=== PATIENT | female | born 1960 | race African-American/Black ===

== ENCOUNTER 2018-01-30 06:12 | Inpatient (IN) | payer OTHER ==
[2018-01-27 12:33] VITALS: BMI 31.8
[~2018-01-30 06:12] MED LIST: CEFAZOLIN 2 GM in DEXTROSE 5%-WATER - 50 ML IVPB ONE; CELECOXIB 200 MG CAPSULE PO ONE; GABAPENTIN 300 MG CAPSULE (FP) PO ONE; PANTOPRAZOLE 40 MG TABLET (FP) PO ONE; ROPIVICAINE 0.2%/MORPH PF/KETOROLAC - 51ML DISP.SYRINGE IA ONE; TRANEXAMIC ACID 1000 MG/10 ML VIAL IVPUSH ONE; oxyCODONE HCL 10 MG SUSTAINED ACTING TABLET PO ONE
[2018-01-30] MEDS ORDERED: GABAPENTIN 300 MG CAPSULE (FP) ONE (06:44)
[2018-01-30] MEDS ORDERED: oxyCODONE HCL 10 MG SUSTAINED ACTING TABLET ONE (06:44)
[2018-01-30] MEDS ORDERED: CELECOXIB 200 MG CAPSULE ONE (06:44)
[2018-01-30] MEDS ORDERED: PANTOPRAZOLE 40 MG TABLET (FP) ONE (06:44)
[2018-01-30] MEDS ORDERED: MIDAZOLAM HCL 2 MG/2 ML SINGLE DOSE VIAL ONE ×2 (06:45→07:15)
[2018-01-30] MEDS ORDERED: BUPIVACAINE LIPOSOME/PF (EXPAREL) 266 MG/20 ML VIAL ONE ×2 (06:45→07:12)
[2018-01-30] MEDS ORDERED: SODIUM CHLORIDE 0.9% P/F 10 ML VIAL IJ ONE (06:46)
[2018-01-30] MEDS ORDERED: BUPIVACAINE HCL/PF (5 MG/ML) 30 ML VIAL IJ ONE ×2 (06:46→07:13)
--- NOTE | 2018-01-30 07:09 | HP ---
Admitting History and Physical - Admission Chief Complaint: right knee osteoarthritis x years History of Present Illness: 57 year old female presents in regard to her right knee. Longstanding history of right knee osteoarthritis. Patient complains of pain, limited ROM, difficulty ambulating and difficulty with activities of daily living. Patient has failed conservative treatment measures including PO medication, activity modification, injections and exercise program. At this point, patient wishes to proceed with surgical intervention - right total knee arthroplasty (MAKOplasty). History Source: Patient Limitations to Obtaining History: No Limitations - Past Medical History Cardiovascular: Yes: HTN ENT: Yes: Allergic Rhinitis Endocrine: Yes: Hypothyroidism - Past Surgical History Additional Past Surgical History: See written history & physical. - Smoking History Smoking history: Never smoked Have you smoked in the past 12 months: No - Alcohol/Substance Use Hx Alcohol Use: Yes (OCCASIONAL) Home Medications - Allergies Allergies/Adverse Reactions: Allergies Allergy/AdvReac Type Severity Reaction Status Date / Time garlic Allergy Severe Difficulty Verified 01/27/18 12:12 Breathing peanut Allergy Severe Difficulty Verified 01/27/18 12:12 Breathing No Known Drug Allergies Allergy Verified 01/27/18 12:13 - Home Medications Home Medications: Ambulatory Orders Amlodipine Besylate 5 mg PO DAILY 01/27/18 Ipratropium [place] 30 ml NS Q6H PRN 01/27/18 Levothyroxine [Synthroid -] 88 mcg PO DAILY 01/27/18 Metoprolol Succinate 25 mg PO BID 01/27/18 Review of Systems - Review of Systems Musculoskeletal: reports: Crepitus (right knee), Decreased ROM (right knee), Joint Pain (right knee), Joint Swelling (right knee) Physical Examination Vital Signs: Vital Signs Temperature 98.2 F 01/30/18 06:32 Pulse Rate 52 L 01/30/18 06:32 Respiratory Rate 18 01/30/18 06:32 Blood Pressure 140/82 01/30/18 06:32 O2 Sat by Pulse Oximetry (%) Constitutional: Yes: Well Nourished Eyes: Yes: Conjunctiva Clear HENT: Yes: Atraumatic, Normocephalic Neck: Yes: Supple Cardiovascular: Yes: Regular Rate and Rhythm Respiratory: Yes: Regular Gastrointestinal: Yes: Soft ...Rectal Exam: Yes: Deferred Musculoskeletal: Yes: Joint Stiffness (right knee), Joint Swelling (right knee) Assessment/Plan 57 year old female presents in regard to her right knee. Longstanding history of right knee osteoarthritis. Patient complains of pain, limited ROM, difficulty ambulating and difficulty with activities of daily living. Patient has failed conservative treatment measures including PO medication, activity modification, injections and exercise program. At this point, patient wishes to proceed with surgical intervention - right total knee arthroplasty (MAKOplasty) . Pros, cons, risks, benefits and alternatives of a right total knee arthroplasty (MAKOplasty) were discussed with the patient at length. Patient confirms her understanding and consents to proceed with a right total knee arthroplasty (MAKOplasty).
[2018-01-30] MEDS ORDERED: LIDOCAINE HCL/PF 2% SDV 5ML VIAL ONE (07:14)
[2018-01-30] MEDS ORDERED: ceFAZolin SODIUM 1 GM VIAL ONE (07:14)
[2018-01-30] MEDS ORDERED: DEXAMETHASONE SOD PHOSPHATE 4 MG/1 ML VIAL ONE (07:14)
[2018-01-30] MEDS ORDERED: SUCCINYLCHOLINE CHLORIDE 200 MG/10 ML VIAL ONE (07:14)
[2018-01-30] MEDS ORDERED: ONDANSETRON 4 MG/2 ML VIAL ONE (07:14)
[2018-01-30] MEDS ORDERED: PROPOFOL 20 ML ONE (07:14)
[2018-01-30] MEDS ORDERED: TRANEXAMIC ACID 1000 MG/10 ML VIAL ONE (08:12)
[2018-01-30] MEDS ORDERED: ROPIVICAINE 0.2%/MORPH PF/KETOROLAC - 51ML DISP.SYRINGE IA ONE ×2 (09:08→10:50)
[2018-01-30] MEDS ORDERED: VANCOMYCIN 1,000 MG VIAL (RESTRICTED TO ID ONLY) IVPB ONE ×2 (09:09→10:50)
[2018-01-30] MEDS ORDERED: TRANEXAMIC ACID 1000 MG/10 ML VIAL IVPB ONE ×2 (09:10→10:50)
[2018-01-30] MEDS ORDERED: ACETAMINOPHEN 1000 MG/100 ML VIAL (NON FORMULARY) IVPB ONE ×2 (12:20→12:42)
[2018-01-30] MEDS ORDERED: traMADol HCL 50 MG TABLET PO ONE (12:25)
[2018-01-30] MEDS ORDERED: ACETAMINOPHEN INJECTION 100 ML IVPB ONE (12:27)
[2018-01-30] MEDS ORDERED: KETOROLAC TROMETHAMINE 30 MG/1 ML VIAL ONE (12:27)
[2018-01-30] MEDS ORDERED: traMADol HCL 50 MG TABLET ONE (12:27)
[2018-01-30] MEDS ORDERED: KETOROLAC TROMETHAMINE 30 MG/1 ML VIAL IVPUSH ONE (12:30)
[2018-01-30] MEDS ORDERED: IPRATROPIUM BROMIDE NS PRN (12:31)
[2018-01-30] MEDS ORDERED: ONDANSETRON 4 MG/2 ML VIAL IVPUSH PRN (12:33)
[2018-01-30] MEDS ORDERED: MAGNESIUM HYDROX 2400MG/30ML ORAL SUSPENSION 30 ML CUP PO PRN (12:33)
[2018-01-30] MEDS ORDERED: MAG HYDROX/AL HYDROX/SIMETH 30 ML UNIT-DOSE CUP PO PRN (12:33)
[2018-01-30] MEDS ORDERED: LACTATED RINGERS SOLUTION 1,000 ML IV SCH (12:45)
--- NOTE | 2018-01-30 12:53 | OP ---
Operative Note - Note: Operative Date: 01/30/18 Pre-Operative Diagnosis: right knee OA Operation: MAKOplasty right TKA Post-Operative Diagnosis: Same as Pre-op Surgeon: Adam Hanna Hematology Nurse Educator: Amarilis Emmanuel Anesthesia: Spinal Estimated Blood Loss (mls): 100
--- NOTE | 2018-01-30 13:29 | SPEC ---
DATE OF OPERATION: 01/30/2018 PREOPERATIVE DIAGNOSIS: Right knee osteoarthritis. POSTOPERATIVE DIAGNOSIS: Right knee osteoarthritis. PROCEDURE: Right total knee replacement with MAKOplasty robotic navigation. ATTENDING: Gloria Bateman MD AGRICULTURAL INSPECTOR: ROBERT Gil ANESTHESIA: Spinal plus sedation. ESTIMATED BLOOD LOSS: 100 mL COMPLICATIONS: None. DISPOSITION: The patient was transferred to the PACU in stable condition. IMPLANTS USED: Brynn Triathlon size 5 femoral component, size 4 tibial component, 35-mm patellar component, 13-mm total-stabilized polyethylene component. INDICATIONS: This is a 57-year-old female who presented to the office complaining of severe right knee pain. She was seen and examined by Dr. Bateman and diagnosed with severe right knee osteoarthritis. The patient was initially managed nonoperatively with injections, medications, and physical therapy but continued to have severe pain and ambulatory dysfunction. She was, therefore, indicated for total knee replacement. The risks, benefits, and alternatives to the procedure were explained to the patient in great detail, and she elected to proceed with the procedure. On the day of surgery, the patient was taken to the operating room and placed on the OR table. Spinal anesthesia was administered by the anesthesiologist. The patient was then positioned supine on the table and all bony prominences were padded. The knee was then prepped and draped in the usual sterile fashion and intravenous antibiotics were given for infection prophylaxis. A surgical time-out was then performed with the team, and the patients identity, procedure, side, availability of implants, and the administration of antibiotics was confirmed. With the knee flexed, a midline incision was made and carried down through the subcutaneous fat to the underlying retinaculum. A medial parapatellar arthrotomy was performed. This was followed by a subperiosteal dissection of the tissue off the proximal, medial tibia. A portion of fat pad was removed from under the patellar tendon, and a small portion of fat was excised off the distal supracondylar femur. Electrocautery and an Aquamantys bipolar sealing device were used to achieve hemostasis. The knee was then flexed further and the anterior horn of the lateral meniscus was released from the midline. Next, the anterior and posterior cruciate ligaments were transected. Grade 4 changes were noted diffusely throughout the knee. Femoral and tibial checkpoints were then placed in the appropriate location using a mallet. Two parallel bicortical self-drilling pins were placed in the tibial diaphysis after making stab incisions and bluntly dissecting down to bone. Two pins were then placed in the distal supracondylar femur. The MobileWeaver navigation arrays were then attached to both the femoral and tibial pins and the lower extremity was then registered to the robotic navigation device using various joint movements, as well as inputting several dozen reference points. The knee was then taken through a full range of motion with a corrective force applied. Alignment in varus/valgus as well as flexion/extension and soft tissue balance was measured in various positions. The navigation device showed a numerical and graphic representation of the soft tissue balance. The components were repositioned virtually using the software until optimal soft tissue balance was achieved on screen. Once this was accomplished, the final plan was saved and sent to the robot. Self-retaining retractors were then placed at the joint line for exposure and protection of the collateral ligaments. The robot was brought into the sterile field and registered with the navigation device. The robotic arm with attached oscillating saw blade was then used to perform femoral and tibial bone cuts as per the saved software plan. The femoral box cut was made using the appropriately sized manual cutting guide. The knee was then irrigated. Trial components were placed and the knee was taken through a full range of motion to assess soft tissue balance and alignment. The range of motion was found to be excellent and the soft tissue balance was optimal and according to plan. The knee was then put into extension and the patella everted. The synovium around the patella was circumscribed with electrocautery. A caliper was used to measure the patellar thickness and a saw was then used to resect the patella at the chondro-osseous junction. The cut surface was then sized and drilled for the appropriate patellar button, with care taken to medialize it. A trial patella was then placed and the knee was again taken through a full range of motion. The knee was found to have both good balance and good patellar tracking. All of the components were removed except the tibial base plate. The appropriate instrumentation was used to drill and punch the proximal tibia for the keel of the final component. All bony surfaces were then cleaned with pulsatile lavage and dried. Bone cement was then prepared on the back table, and final components were cemented in place in the usual fashion. Extruded cement was removed. The polyethylene trial was placed, the knee was put into extension, and axial pressure was applied for compression while the cement hardened. The patellar button was similarly cemented into place. Once the cement had hardened, the knee was taken through a full range of motion to assess stability, balance, and patellar tracking. This was found to be optimal and the trial polyethylene was exchanged for the appropriately sized real implant. The wound was then thoroughly irrigated with normal saline. A 3-minute dilute Betadine lavage was performed. The knee was again irrigated using a pulsatile lavage device. A periarticular injection was used to locally infiltrate the capsular tissues surrounding the implant and prosthesis. Then No. 1 Polysorb and 0 VLoc 180 barbed sutures were used to close the arthrotomy. Then No. 1 Polysorb and 2-0 VLoc 90 sutures were used in the subcutaneous tissues. Then 4-0 undyed Vicryl and Dermabond skin adhesive was used to close the stab incisions made for the navigation pins. The skin was closed using both 3-0 VLoc 90 suture in a running subcuticular fashion and Dermabond skin adhesive. Once this was completed a sterile Aquacel dressing and compressive Joe-wrap was applied. The patient was then awakened and taken to the PACU in stable condition. GLORIA BATEMAN M.D. [id number]
[2018-01-30] MEDS: CEFAZOLIN 2 GM/D5W 2 GM/50 ML ML IVPB SCH (19:34)
[2018-01-30] MEDS ORDERED: DEXAMETHASONE SOD PHOSPHATE 10 MG/1 ML VIAL IVPB ONE (20:00)
[2018-01-30] MEDS: SENNOSIDES/DOCUSATE COMBO (SENNA PLUS) TABLET (UD) PO SCH (21:08)
[2018-01-30] MEDS: CELECOXIB 200 MG CAPSULE PO SCH (21:08)
[2018-01-30] MEDS: ASCORBIC ACID 500 MG TABLET (FP) PO SCH (21:08)
[2018-01-30] MEDS: GABAPENTIN 300 MG CAPSULE (FP) PO SCH (21:08)
[2018-01-30] MEDS: metoPROLOL SUCCINATE 25 MG TAB.SR.24H (FP) PO SCH ×2 (21:08→21:16)
[2018-01-31] MEDS: traMADol HCL 50 MG TABLET PO SCH ×6 (00:13→18:22)
[2018-01-31] MEDS: KETOROLAC TROMETHAMINE 30 MG/1 ML VIAL IVPUSH SCH ×3 (00:15→08:04)
[2018-01-31] MEDS: CEFAZOLIN 2 GM/D5W 2 GM/50 ML ML IVPB SCH (01:49)
[2018-01-31] MEDS: LEVOTHYROXINE NA 88 MCG TABLET (FP) PO SCH (06:36)
[2018-01-31] MEDS: ASPIRIN 325 MG TABLET PO SCH (08:10)
[2018-01-31 08:26] LABS: HEMATOCRIT 33.8 % (32.4-45.2); HEMOGLOBIN 11.2 GM/dl (10.7-15.3); MCH 28.8 pg (25.7-33.7); MCHC 33.1 g/dl (32.0-36.0); MEAN PLT VOLUME 9.8 fl (7.5-11.1); PLATELET COUNT 241 K/MM3 (134-434); RBC 3.88 M/mm3 (3.60-5.2); RDW 13.3 % (11.6-15.6); WHITE BLOOD COUNT 13.9 K/mm3 (4.0-10.8)
[2018-01-31 08:34] LABS: ANION GAP 6 (8-16); BLOOD UREA NITROGEN 15 mg/dl (7-18); CALCIUM 8.7 mg/dl (8.4-10.2); CHLORIDE 101 mmol/L (98-107); CO2 27 mmol/L (22-28); CREATININE 0.8 mg/dl (0.6-1.3); GLUCOSE,RANDOM 139 mg/dl (74-106); POTASSIUM 4.3 mmol/L (3.5-5.1); SODIUM 134 mmol/L (136-145)
--- NOTE | 2018-01-31 09:39 | PN ---
Progress Note (short form) - Note Progress Note: Anesthesiology Post-op/Pain Service 57 y.o. woman POD#1 s/p right knee MAKOplasty with adductor/selective tibial blocks and spinal anesthesia. She is feeling well, working with PT and performing movements/exercises with minimal difficulty. She states there is some residual numbness but that it is less than before. Otherwise, no complaints, no apparent anesthesia-related issues. VSS. 57 y.o. woman s/p right knee MAKOplasty with stable post-operative course. Continue post-operative management as per primary team.
[2018-01-31] MEDS: amLODIPine BESYLATE 5 MG TABLET (FP) PO SCH (09:47)
[2018-01-31] MEDS: ASCORBIC ACID 500 MG TABLET (FP) PO SCH ×2 (09:47→21:31)
[2018-01-31] MEDS: PANTOPRAZOLE 40 MG TABLET (FP) PO SCH (09:47)
[2018-01-31] MEDS: MULTIVITAMINS (DAILY MVI) TABLET (FP) PO SCH (09:47)
[2018-01-31] MEDS: metoPROLOL SUCCINATE 25 MG TAB.SR.24H (FP) PO SCH ×2 (09:47→21:31)
[2018-01-31] MEDS: CELECOXIB 200 MG CAPSULE PO SCH ×2 (09:47→21:31)
[2018-01-31] MEDS: SENNOSIDES/DOCUSATE COMBO (SENNA PLUS) TABLET (UD) PO SCH ×2 (09:47→21:30)
[2018-01-31] MEDS: GABAPENTIN 300 MG CAPSULE (FP) PO SCH ×2 (09:47→21:31)
--- NOTE | 2018-01-31 22:13 | PN ---
Progress Note (short form) - Note Progress Note: Pt seen and examined. Doing well. AVSS Selected Entries 01/31/18 14:22 Temperature 97.7 F Pulse Rate 67 Respiratory 18 Rate Blood Pressure 114/80 Laboratory Tests 01/31/18 01/31/18 07:30 07:30 WBC 13.9 H Hgb 11.2 Hct 33.8 Plt Count 241 Sodium 134 L Potassium 4.3 Chloride 101 Carbon Dioxide 27 Anion Gap 6 L BUN 15 Creatinine 0.8 Creat Clearance w eGFR > 60 Random Glucose 139 H D Calcium 8.7 Gen: NAD RLE: c/d/i, NVID A/P 57yo female POD#1 s/p R TKA PT/OOB - WBAT RLE D/C in AM after PT
--- NOTE | 2018-01-31 22:29 | DS ---
Physical Examination Vital Signs: Vital Signs Temperature 97.7 F 01/31/18 14:22 Pulse Rate 67 01/31/18 14:22 Respiratory Rate 18 01/31/18 14:22 Blood Pressure 114/80 01/31/18 14:22 O2 Sat by Pulse Oximetry (%) 96 01/31/18 14:22 Labs: CBC, BMP 01/31/18 07:30 01/31/18 07:30 Discharge Summary Reason For Visit: RIGHT KNEE OSTEOARTHRITIS Current Active Problems Osteoarthritis of right knee (Acute) Procedures: Principal: right TKA Hospital Course: Admitted for elective surgery. Procedure performed without complications. Pt received postoperative antibiotic prophylaxis and DVT ppx. Ambulated with physical therapy. Stable for discharge home with outpatient followup. Condition: Stable - Instructions Diet, Activity, Other Instructions: Dr. Hanna - Knee Replacement Instructions Keep the Aquacel dressing on until removed by Dr. Hanna in 10-14 days - it is antibacterial and waterproof and you can shower with it on. Call the office for a follow-up appointment with Dr. Hanna in 10-14 days. [phone] Take one Aspirin 325mg daily for 6 weeks to prevent blood clots in your legs. Take one Pantoprazole 40mg daily for 6 weeks to protect against heartburn and ulcers. Take Cephalexin (antibiotic) 3x/day for 10 days to help prevent skin infection. Take Celebrex 200mg twice daily for 30 days to reduce swelling and inflammation. Take a multivitamin, stool softener, and extra Vitamin C supplement daily. For pain: *Mild pain (1-3/10): Take 1 Tramadol tablet every 4 hours as needed. Moderate pain (4-6/10): Take 1 Tramadol tablet and 1 Percocet tablet every 4 hours as needed. Severe pain (7-10/10): Take 1 Tramadol tablet and 2 Percocet tablets every 4 hours as needed. Activity: You can put as much weight on the operative leg as you want. Right after you get home, there will be a physical therapist coming to your house to help you walk around and bend/straighten your knee. After your follow-up appointment, you will be sent for more intensive outpatient physical therapy which will include machines and equipment that the home therapist cannot bring to your house. Always use a walker or cane for balance and to prevent falls. Expect to see swelling/bruising from the operative site all the way down to your toes. Wear the compression stocking on the operative side during the day to minimize how much swelling there is in your foot/ankle. Don't wear the stocking at night. You don't have to wear a stocking on the other side. Disposition: VNS/HOME HEALTH CARE - Home Medications Comprehensive Discharge Medication List: Ambulatory Orders Amlodipine Besylate 5 mg PO DAILY 01/27/18 Ipratropium [place] 30 ml NS Q6H PRN 01/27/18 Levothyroxine [Synthroid -] 88 mcg PO DAILY 01/27/18 Metoprolol Succinate 25 mg PO BID 01/27/18 Ascorbic Acid [Vitamin C -] 500 mg PO BID tablet 01/31/18 Aspirin [ASA -] 325 mg PO DAILY@0800 tablet 01/31/18 Celecoxib [CeleBREX -] 200 mg PO BID #60 capsule 01/31/18 Cephalexin Monohydrate [Keflex -] 500 mg PO TID #30 capsule 01/31/18 Multivitamins [Multivit ([facility] Formulary)] 1 tab PO DAILY tab 01/31/18 Oxycodone HCl/Acetaminophen [Percocet 5-325 mg Tablet] 1 - 2 tab PO Q4H PRN #60 tablet MDD 10 01/31/18 Pantoprazole Sodium [Protonix -] 40 mg PO DAILY #40 tablet.ec 01/31/18 Sennosides/Docusate Sodium [Pericolace -] 2 tablet PO BID tablet 01/31/18 traMADol HCL [Ultram -] 50 mg PO Q4H PRN #42 tablet MDD 6 01/31/18
[2018-02-01] MEDS: traMADol HCL 50 MG TABLET PO SCH ×2 (01:17→07:12)
[2018-02-01] MEDS: LEVOTHYROXINE NA 88 MCG TABLET (FP) PO SCH (07:12)
[2018-02-01] MEDS: ASPIRIN 325 MG TABLET PO SCH (08:11)
[2018-02-01 08:46] LABS: HEMATOCRIT 28.5 % (32.4-45.2); HEMOGLOBIN 9.5 GM/dl (10.7-15.3); MCH 28.6 pg (25.7-33.7); MCHC 33.2 g/dl (32.0-36.0); MEAN CELL VOLUME 86.3 fl (80-96); MEAN PLT VOLUME 10.5 fl (7.5-11.1); PLATELET COUNT 104 K/MM3 (134-434); RDW 13.7 % (11.6-15.6); WHITE BLOOD COUNT 10.6 K/mm3 (4.0-10.8)
[2018-02-01 09:38] VITALS: BP 109/60; PULSE 73; TEMP 98.9
[2018-02-01] MEDS: MULTIVITAMINS (DAILY MVI) TABLET (FP) PO SCH (09:39)
[2018-02-01] MEDS: ASCORBIC ACID 500 MG TABLET (FP) PO SCH (09:39)
[2018-02-01] MEDS: amLODIPine BESYLATE 5 MG TABLET (FP) PO SCH (09:39)
[2018-02-01] MEDS: SENNOSIDES/DOCUSATE COMBO (SENNA PLUS) TABLET (UD) PO SCH (09:39)
[2018-02-01] MEDS: CELECOXIB 200 MG CAPSULE PO SCH (09:39)
[2018-02-01] MEDS: metoPROLOL SUCCINATE 25 MG TAB.SR.24H (FP) PO SCH (09:39)
[2018-02-01] MEDS: GABAPENTIN 300 MG CAPSULE (FP) PO SCH (09:39)
[2018-02-01] MEDS: PANTOPRAZOLE 40 MG TABLET (FP) PO SCH (09:39)
--- NOTE | 2018-02-03 15:23 | PATH ---
Surgical Pathology Report Patient Name: ALEXIS OCHOA Med. Rec. #: [id number] /Age/Gender: 1960 (Age: 57) / F Account: [id number] Location: [facility] MED-SURG Taken: 01/30/2018 Received: 01/30/2018 Reported: 02/03/2018 Physicians: Adam Hanna M.D. Specimen(s) Received RIGHT KNEE BONE Clinical History Right knee osteoarthritis Final Diagnosis KNE BONE, RIGHT,TOTAL KNEE REPLACEMENT: DEGENERATIVE JOINT DISEASE. Electronically Signed Gaby Maldonado M.D. Gross Description Received in formalin labeled "right knee bone," is a 12.0 x 10.5 x 2.5 cm aggregate of multiple portions of bone and soft tissue. The tibial plateau measures 8.0 x 5.4 x 1.3 cm. There is a 2.1 cm in greatest dimension area of eburnation present. The remaining articular surfaces are samuels red and diffusely granular. The underlying trabecular bone is yellow and hard. Family Service Counselor sections are submitted in one cassette, following decalcification. /01/30/2018 [facility]
== END 2018-02-01 11:50 | disposition home health service (06) | DRG 302 ==
LOC: FM/S 06:12
PROVIDERS: ADMIT Student in an Organized Health Care Education/Training Program; ATTEND Nurse Practitioner Family
PROC: 8E0Y0CZ Robotic Assisted Procedure of Lower Extremity, Open Approach (ICD-10-PCS; 2018-01-30)
PROC: 0SRC0J9 Replacement of Right Knee Joint with Synthetic Substitute, Cemented, Open Approach (ICD-10-PCS; principal; 2018-01-30 08:48)
DX: M17.11 Unilateral primary osteoarthritis, right knee (principal); I10 Essential (primary) hypertension; E03.9 Hypothyroidism, unspecified; J30.9 Allergic rhinitis, unspecified
CPT/HCPCS: 36415; 73560-TC-RT-FY; 80048; 85027; 86803; 87389; 88304-TC; 88311-TC; 94760; 97116-GP; 97162-GP; J0131; J1100

== ENCOUNTER 2018-03-17 06:24 | Day surgery (SDC) | payer OTHER ==
[2018-03-14 16:47] VITALS: BMI 29.9
[2018-03-17] MEDS ORDERED: KETOROLAC TROMETHAMINE 60 MG/2 ML VIAL ONE (07:44)
[2018-03-17] MEDS ORDERED: BUPIVACAINE HCL/PF 0.5% (5MG/ML) 10 ML VIAL ONE (07:45)
[2018-03-17] MEDS ORDERED: LIDOCAINE 1%/EPI 1:100000 (20 ML MULTI DOSE VIAL) ONE (07:45)
--- NOTE | 2018-03-17 07:48 | HP ---
Admitting History and Physical - Admission Chief Complaint: Right knee arthrofibrosis History of Present Illness: 57 year old female presents today in regard to her right knee. She is status post a right total knee arthroplasty, MAKOplasty on 01/30/2018. She complains of pain and limited range of motion. She has been attending formal physiotherapy and performing a home stretching program. Her limited range of motion limits her ability to complete ADLs. At this point, patient would like to proceed with a manipulation under anesthesia. History Source: Patient - Past Medical History Cardiovascular: Yes: HTN ENT: Yes: Allergic Rhinitis Endocrine: Yes: Hypothyroidism - Past Surgical History Additional Past Surgical History: Right total knee arthroplasty 01/30/2018. See written history & physical. - Smoking History Smoking history: Never smoked Have you smoked in the past 12 months: No - Alcohol/Substance Use Hx Alcohol Use: Yes (OCCASIONAL) Home Medications - Allergies Allergies/Adverse Reactions: Allergies Allergy/AdvReac Type Severity Reaction Status Date / Time garlic Allergy Severe Difficulty Verified 03/14/18 16:39 Breathing peanut Allergy Severe Difficulty Verified 03/14/18 16:39 Breathing No Known Drug Allergies Allergy Verified 03/14/18 16:39 - Home Medications Home Medications: Ambulatory Orders Amlodipine Besylate 5 mg PO DAILY 01/27/18 Ipratropium [place] 2 spr NS Q6H PRN 01/27/18 Levothyroxine [Synthroid -] 88 mcg PO DAILY 01/27/18 Metoprolol Succinate 25 mg PO BID 01/27/18 Ascorbic Acid [Vitamin C -] 500 mg PO BID tablet 01/31/18 Aspirin [ASA -] 325 mg PO DAILY@0800 tablet 01/31/18 Celecoxib [CeleBREX -] 200 mg PO BID #60 capsule 01/31/18 Multivitamins [Multivit ([facility] Formulary)] 1 tab PO DAILY tab 01/31/18 Oxycodone HCl/Acetaminophen [Percocet 5-325 mg Tablet] 1 - 2 tab PO Q4H PRN #60 tablet MDD 10 01/31/18 Pantoprazole Sodium [Protonix -] 40 mg PO DAILY #40 tablet.ec 01/31/18 Sennosides/Docusate Sodium [Pericolace -] 2 tablet PO BID tablet 01/31/18 Review of Systems - Review of Systems Musculoskeletal: reports: Decreased ROM (right knee) Physical Examination Vital Signs: Vital Signs Temperature 97.8 F 03/17/18 07:19 Pulse Rate 54 L 03/17/18 07:19 Respiratory Rate 18 03/17/18 07:19 Blood Pressure 156/85 03/17/18 07:19 O2 Sat by Pulse Oximetry (%) 100 03/17/18 07:19 Constitutional: Yes: Well Nourished, No Distress Eyes: Yes: Conjunctiva Clear HENT: Yes: Atraumatic, Normocephalic Neck: Yes: Supple Cardiovascular: Yes: Regular Rate and Rhythm Respiratory: Yes: Regular Gastrointestinal: Yes: Soft ...Rectal Exam: Yes: Deferred Musculoskeletal: Yes: Joint Stiffness (right knee) Assessment/Plan 57 year old female presents today in regard to her right knee. She is status post a right total knee arthroplasty, MAKOplasty on 01/30/2018. She complains of pain and limited range of motion. She has been attending formal physiotherapy and performing a home stretching program. Her limited range of motion limits her ability to complete ADLs. At this point, patient would like to proceed with a manipulation under anesthesia. Pros, cons, risks, benefits and alternatives of a manipulation under anesthesia was discussed with the patient at length. Patient confirms her understanding and consents to proceed with a right total knee arthroplasty manipulation under anesthesia.
--- NOTE | 2018-03-17 08:07 | OP ---
Operative Note - Note: Operative Date: 03/17/18 Pre-Operative Diagnosis: right TKA arthrofibrosis Operation: right knee BOBBY Findings: Pre procedure ROM 5-80 Post procedure ROM 5-110 Post-Operative Diagnosis: Same as Pre-op Surgeon: Adam Hanna Anesthesia: MAC Estimated Blood Loss (mls): 0
[2018-03-17] MEDS ORDERED: ACETAMINOPHEN 1000 MG/100 ML VIAL (NON FORMULARY) IVPB ONE (08:11)
--- NOTE | 2018-03-17 08:11 | DS ---
Physical Examination Vital Signs: Vital Signs Temperature 97.8 F 03/17/18 07:19 Pulse Rate 54 L 03/17/18 07:19 Respiratory Rate 18 03/17/18 07:19 Blood Pressure 156/85 03/17/18 07:19 O2 Sat by Pulse Oximetry (%) 100 03/17/18 07:19 Discharge Summary Reason For Visit: Right knee arthrofibrosis Current Active Problems Ankylosis of right knee joint (Acute) Procedures: Principal: right knee BOBBY Hospital Course: Admitted for elective BOBBY. Procedure performed without complications. Stable for discharge home with outpatient followup. Condition: Stable - Instructions Diet, Activity, Other Instructions: Dr. Hanna - Knee Manipulation Instructions START PHYSICAL THERAPY TOMORROW TO KEEP THE KNEE FROM STIFFENING AGAIN! Call the office for a follow-up appointment with Dr. Hanna in 10-14 days. [phone] For pain: *Mild pain (1-3/10): Take 1 Tramadol tablet every 4 hours as needed. Moderate pain (4-6/10): Take 1 Tramadol tablet and 1 Percocet tablet every 4 hours as needed. Severe pain (7-10/10): Take 1 Tramadol tablet and 2 Percocet tablets every 4 hours as needed. Disposition: HOME - Home Medications Comprehensive Discharge Medication List: Ambulatory Orders Amlodipine Besylate 5 mg PO DAILY 01/27/18 Ipratropium [place] 2 spr NS Q6H PRN 01/27/18 Levothyroxine [Synthroid -] 88 mcg PO DAILY 01/27/18 Metoprolol Succinate 25 mg PO BID 01/27/18 Ascorbic Acid [Vitamin C -] 500 mg PO BID tablet 01/31/18 Aspirin [ASA -] 325 mg PO DAILY@0800 tablet 01/31/18 Celecoxib [CeleBREX -] 200 mg PO BID #60 capsule 01/31/18 Multivitamins [Multivit ([facility] Formulary)] 1 tab PO DAILY tab 01/31/18 Oxycodone HCl/Acetaminophen [Percocet 5-325 mg Tablet] 1 - 2 tab PO Q4H PRN #60 tablet MDD 10 01/31/18 Pantoprazole Sodium [Protonix -] 40 mg PO DAILY #40 tablet.ec 01/31/18 Sennosides/Docusate Sodium [Pericolace -] 2 tablet PO BID tablet 01/31/18 traMADol HCL [Ultram -] 50 mg PO Q4H PRN #60 tablet MDD 6 03/17/18
[2018-03-17] MEDS ORDERED: oxyCODONE HCL 10 MG SUSTAINED ACTING TABLET PO ONE (08:12)
[2018-03-17] MEDS ORDERED: oxyCODONE HCL 5 MG TABLET PO ONE (08:12)
[2018-03-17] MEDS ORDERED: ONDANSETRON 4 MG/2 ML VIAL IVPUSH PRN (08:17)
[2018-03-17] MEDS ORDERED: oxyCODONE HCL 5 MG TABLET PO PRN (08:17)
[2018-03-17] MEDS ORDERED: LACTATED RINGERS SOLUTION 1,000 ML IV SCH (08:30)
[2018-03-17] MEDS ORDERED: ACETAMINOPHEN INJECTION 100 ML IVPB ONE ×2 (08:53→08:59)
[2018-03-17 10:24] VITALS: BP 150/76; PULSE 54; TEMP 98
--- NOTE | 2018-03-26 14:20 | OP ---
DATE OF OPERATION: 03/17/2018 PREOPERATIVE DIAGNOSIS: Right total knee replacement arthrofibrosis. POSTOPERATIVE DIAGNOSIS: Right total knee replacement arthrofibrosis. PROCEDURE PERFORMED: Right knee manipulation under anesthesia. SURGEON: Gloria Bateman M.D. ASSORTMENT PLANNER: None. ANESTHESIA: Conscious sedation. ESTIMATED BLOOD LOSS: 0 mL. COMPLICATIONS: None. INDICATIONS: This is a 57-year-old female who underwent a right total knee replacement on January 30, 2018. The surgery was uneventful, and she did well postoperatively, but had increasing stiffness as time went on, which limited her ability to do physical therapy. She was seen in the office on March 12, 2018, and her measured range of motion was 0 to 80 degrees. At this point it was 6 weeks since surgery, and we were concerned that she was developing arthrofibrosis. She had a very firm endpoint at 80 degrees, which caused pain and she was unable to push past this with physical therapy. She was therefore indicated for a right knee manipulation under anesthesia. The risks, benefits and alternatives to the procedure were explained to the patient in great detail, and she elected to proceed with the procedure. DESCRIPTION OF PROCEDURE: On the day of the procedure, the patient was brought to the preoperative holding area and placed under conscious sedation. Preoperative range of motion was measured and was found to be 0 to 80 degrees. Manipulation under anesthesia was performed, and audible disruption of scar tissue bands was heard. The postprocedure range of motion was 0 to 115 degrees. At the conclusion of manipulation, the knee was injected with Marcaine and 30 mg of Toradol. The patient was then awakened and discharged home, with instructions to start physical therapy the following day, to maintain her range of motion. GLORIA BATEMAN M.D. [id number]
== END 2018-03-17 11:29 | disposition home or self-care (01) ==
LOC: FASU 06:24 → EDSTATUS 07:30 → FASU 11:29
PROVIDERS: ATTEND Student in an Organized Health Care Education/Training Program
PROC: 0SNCXZZ Release Right Knee Joint, External Approach (ICD-10-PCS; principal; 2018-03-17 07:51)
DX: M24.661 Ankylosis, right knee (principal); Z96.651 Presence of right artificial knee joint; I10 Essential (primary) hypertension; E03.9 Hypothyroidism, unspecified
CPT/HCPCS: 94760; J0131